=== PATIENT | male | born 1985 | race Caucasian/White ===

== ENCOUNTER 2023-12-10 03:38 | Emergency (ER) | payer OTHER ==
[~2023-12-10] VITALS: Ht 177.8 cm; Wt 99.8 kg
[2023-12-10] MEDS ORDERED: LIDOCAINE HCL 1% 20 ML VIAL ONE (05:48)
[2023-12-10] MEDS ORDERED: TDAP DIPH,PERTUSS,TET VAC/PF 0.5 ML DISP.SYRIN IM ONE (05:49)
[2023-12-10] MEDS ORDERED: NEOMY/BACITRA/POLYMYXIN B OINT UD PACKET TP ONE (05:52)
[2023-12-10] MEDS ORDERED: LIDOCAINE 1%-EPI 1:100,000 20 ML VIAL ONE (05:57)
[2023-12-10] MEDS: TDAP DIPH,PERTUSS,TET VAC/PF 0.5 ML DISP.SYRIN IM ONE (06:30)
[2023-12-10] MEDS: LIDOCAINE 1%-EPI 1:100,000 20 ML VIAL IJ ONE (06:43)
[2023-12-10] MEDS: NEOMY/BACITRA/POLYMYXIN B OINT UD PACKET TP ONE (06:51)
[2023-12-10 07:13] VITALS: BP 138/88; TEMP 97.7; O2SAT 97
== END 2023-12-10 07:13 | disposition home or self-care (01) ==
LOC: ER 03:46
DX: S61.214A Laceration without foreign body of right ring finger without damage to nail, initial encounter (principal); Z98.890 Other specified postprocedural states; W26.8XXA Contact with other sharp object(s), not elsewhere classified, initial encounter; Y93.89 Activity, other specified; Y92.89 Other specified places as the place of occurrence of the external cause; Y99.8 Other external cause status
CPT/HCPCS: 90715; A4606; A4663; J3490

== ENCOUNTER 2024-03-06 02:14 | Emergency (ER) | payer MEDICAID, OTHER ==
[~2024-03-06] VITALS: Ht 180.3 cm; Wt 95.3 kg
[2024-03-06] MEDS: KETOROLAC TROMETHAMINE 30 MG INJ IM ONE (02:59)
[2024-03-06 05:33] VITALS: BP 138/96; TEMP 97.5; O2SAT 99
== END 2024-03-06 05:32 | disposition home or self-care (01) ==
LOC: ER 02:19
DX: M25.531 Pain in right wrist (principal); F12.90 Cannabis use, unspecified, uncomplicated
CPT/HCPCS: 73110; 73200; A4606; A4663